=== PATIENT | female | born 1985 | race Caucasian/White ===

== ENCOUNTER 2017-03-27 11:00 | Emergency (ER) | payer MEDICAID, OTHER ==
[~2017-03-27] VITALS: Wt 76.4 kg
[~2017-03-27 11:00] MED LIST: ACET500T84 PO; OMEP20CA16 PO; RANI150C11 PO
--- NOTE | 2017-03-27 13:23 | ERD ---
ER Documentation Chief Complaint Chief Complaint RASH, ITCHING, ONSET 1 WEEK, NO SOB HPI 32-year-old female, with a history of contact dermatitis, presents to the emergency department complaining of a worsening of pruritic rash, generalized, that started 1 week ago. The patient thinks that the symptoms are exacerbated because of the changes in the weather. The symptoms are associated with runny nose, itchy eyes and dry throat . Currently, she is not taking any medications for allergies, the patient denies fevers, chills, shortness of breath. ROS SYSTEMIC symptoms: no fever, chills, no night sweats, no weight loss EYE symptoms: No blurred vision, no eye discharge OTOLARYNGEAL symptoms: No hearing loss. No ear pain, no sore throat CARDIOVASCULAR symptoms: No chest pain or discomfort, no palpitations. PULMONARY symptoms: No dyspnea, no cough, no wheezing. GASTROINTESTINAL symptoms: No abdominal pain, no nausea, no vomiting, no diarrhea MUSCULOSKELETAL symptoms: No arthralgias, no muscle aches. NEUROLOGY symptoms: No confusion, no syncope, no numbness or tingling. SKIN: Per HPI Medications Home Meds Active Scripts Prednisone (Prednisone) 20 Mg Tab, 20 MG PO DAILY for 5 Days, TAB Prov:ZOE WEBB MD 03/27/17 Hydroxyzine Hcl* (Hydroxyzine Hcl*) 25 Mg Tablet, 25 MG PO Q8H Y for ITCHING, # 30 TAB Prov:ZOE WEBB MD 03/27/17 Cromolyn Sodium* (Cromolyn Sodium*) 4% - 10 Ml Drops, 1 DROP BOTH EYES QID for 15 Days, EA Prov:ZOE WEBB MD 03/27/17 Triamcinolone Acetonide (Triamcinolone Acetonide) 0.1% - 60 Ml Lotion, 1 APPLIC TOP BID, #1 BOTTLE Prov:ZOE WEBB MD 03/27/17 Reported Medications Acetaminophen (Q-Pap Extra Strength) 500 Mg Tablet, 500 MG PO Q4 08/01/12 Omeprazole* (Omeprazole*) 20 Mg Capsule.dr, 20 MG PO BID 08/01/12 Ranitidine Hcl (Ranitidine Hcl) 150 Mg Capsule, 150 MG PO BID 08/01/12 Allergies Allergies: Coded Allergies: No Known Allergy (Verified , NO, 03/27/17) PMhx/Soc History of Surgery: No Anesthesia Reaction: No Hx Neurological Disorder: No Hx Respiratory Disorders: No Hx Cardiac Disorders: No Hx Psychiatric Problems: No Hx Miscellaneous Medical Probl: No Hx Alcohol Use: No Hx Substance Use: No Hx Tobacco Use: No Smoking Status: Never smoker Physical Exam Vitals Vital Signs Date Time Temp Pulse Resp B/P Pulse Ox O2 Delivery O2 Flow Rate FiO2 03/27/17 11:05 98.4 72 18 112/59 98 Physical Exam Patient is in no acute distress, vital signs stable. Alert and fully oriented. EYES: PERRLA, EOMI, Sclera and conjunctiva injected otherwise appear normal. EARS: Canals clear, tympanic membranes WNL THROAT: Erythematous oropharynx. NECK: Supple, No lymphadenopathy. Full ROM without pain or tenderness. HEART: RRR, no rubs, murmurs, clicks or gallops. LUNGS: Clear to auscultation. ABDOMEN: Soft, non-tender without masses or hepatosplenomegaly. EXTREMITIES: No edema bilaterally. BACK: Full ROM, no deformity, normal back exam NEURO: Cranial nerves grossly intact, no motor or sensory deficit Skin: Multiple dry, erythematous plaques located on flexor areas and back Procedures/MDM 32-year-old female, with history of contact dermatitis, presents to the emergency department for worsening of generalized pruritic rash for 1 week, associated with itchy eyes and runny nose. Vital signs stable, Physical exam revealed multiple dry, erythematous plaques predominantly in upper extremities and dorsum. Differential diagnosis include but not limited to: Infectious process like impetigo, cellulitis, abscess; autoimmune process like psoriasis, contact dermatitis, lupus; insect bites. Physical examination and clinical presentation consistent most likely with eczema. During the ED course the patient remained stable, no new complaints. Results and clinical impression discussed with patient who agrees with management. The patient is stable to be treated outpatient and will be discharged home with a Rx for triamcinolone, hydroxyzine and cromolyn, some side effects of prescribed medications (headache, rash, nausea, vomiting, diarrhea, drowsiness, habituation, bleeding, hypertension, interactions with other medications) were reviewed. The patient was instructed to follow up with the primary care provider in the next 48h. If symptoms persist, worsen or new symptoms develop, then patient should return to the ED immediately. Instructions explained and given directly by me to the patient in Bengali with acknowledgment and demonstrated understanding. Disclaimer: Inadvertent spelling and grammatical errors are likely due to EHR/ dictation software use and do not reflect on the overall quality of patient care. Also, please note that the electronic time recorded on this note does not necessarily reflect the actual time of the patient encounter. Departure Diagnosis: Primary Impression: Eczema Additional Impression: Allergic conjunctivitis and rhinitis Condition: Stable Additional Instructions: Call your primary care doctor TOMORROW for an appointment during the next 1-2 days. See the doctor sooner or return here if your condition worsens before your appointment time. Thank you very much for allowing us to participate in your care. Your health and safety is our top priority at [facility]. Have prescriptions filled and follow precisely the directions on the label. Follow-up with primary care provider during the next 4 days and bring all the information and medications prescribed. If illness has not improved in 2 days, then make an appointment with primary care provider. If the provider is unavailable, return to the Emergency Department immediately. ZOE WEBB MD Mar 27, 2017 13:22
[2017-03-27] MEDS ORDERED: PRED20TA PO (13:25)
[2017-03-27] MEDS ORDERED: CROM10DR6 BOTH EYES (13:25)
[2017-03-27] MEDS ORDERED: HYDR-3011 PO (13:25)
[2017-03-27] MEDS ORDERED: TR1B60 TOP (13:25)
== END 2017-03-27 13:34 | disposition home or self-care (01) ==
LOC: FTE 11:00
DX: L30.9 Dermatitis, unspecified (principal); H10.13 Acute atopic conjunctivitis, bilateral; J30.9 Allergic rhinitis, unspecified
CPT/HCPCS: 99284

== ENCOUNTER 2017-03-28 13:59 | Emergency (ER) | payer MEDICAID ==
[~2017-03-28] VITALS: Wt 76.1 kg
[~2017-03-28 13:59] MED LIST changes: +CROM10DR6 BOTH EYES; +HYDR-3011 PO; +PRED20TA PO; +TR1B60 TOP
--- NOTE | 2017-03-28 16:16 | ERD ---
ER Documentation Chief Complaint Chief Complaint PAIN/REDNESS ON RIGHT EYE, STATES FOREIGN OBJECT WENT INTO EYE HPI Returns to the emergency department complaining of right eye irritation due to a foreign body. Denies eye pain, no blurred vision, no use of contact lenses, she was able to remove the foreign body but still has some irritation. In regards to the urticaria symptoms, she refers feeling much better ROS SYSTEMIC symptoms: no fever, chills, no night sweats, no weight loss EYE symptoms: No blurred vision, no eye discharge OTOLARYNGEAL symptoms: No hearing loss. No ear pain, no sore throat CARDIOVASCULAR symptoms: No chest pain or discomfort, no palpitations. PULMONARY symptoms: No dyspnea, no cough, no wheezing. GASTROINTESTINAL symptoms: No abdominal pain, no nausea, no vomiting, no diarrhea MUSCULOSKELETAL symptoms: No arthralgias, no muscle aches. NEUROLOGY symptoms: No confusion, no syncope, no numbness or tingling. SKIN: No rashes Medications Home Meds Active Scripts Prednisone (Prednisone) 20 Mg Tab, 20 MG PO DAILY for 5 Days, TAB Prov:ZOE WEBB MD 03/27/17 Hydroxyzine Hcl* (Hydroxyzine Hcl*) 25 Mg Tablet, 25 MG PO Q8H Y for ITCHING, # 30 TAB Prov:ZOE WEBB MD 03/27/17 Cromolyn Sodium* (Cromolyn Sodium*) 4% - 10 Ml Drops, 1 DROP BOTH EYES QID for 15 Days, EA Prov:ZOE WEBB MD 03/27/17 Triamcinolone Acetonide (Triamcinolone Acetonide) 0.1% - 60 Ml Lotion, 1 APPLIC TOP BID, #1 BOTTLE Prov:ZOE WEBB MD 03/27/17 Reported Medications Acetaminophen (Q-Pap Extra Strength) 500 Mg Tablet, 500 MG PO Q4 08/01/12 Omeprazole* (Omeprazole*) 20 Mg Capsule.dr, 20 MG PO BID 08/01/12 Ranitidine Hcl (Ranitidine Hcl) 150 Mg Capsule, 150 MG PO BID 08/01/12 Allergies Allergies: Coded Allergies: No Known Allergy (Verified , NO, 03/28/17) PMhx/Soc Medical and Surgical Hx: pt denies Medical Hx, pt denies Surgical Hx History of Surgery: No Anesthesia Reaction: No Hx Neurological Disorder: No Hx Respiratory Disorders: No Hx Cardiac Disorders: No Hx Psychiatric Problems: No Hx Miscellaneous Medical Probl: No Hx Alcohol Use: No Hx Substance Use: No Hx Tobacco Use: No Physical Exam Vitals Vital Signs Date Time Temp Pulse Resp B/P Pulse Ox O2 Delivery O2 Flow Rate FiO2 03/28/17 14:03 97.1 82 17 131/55 99 Physical Exam Patient is in no acute distress, vital signs stable. Alert and fully oriented. EYES: PERRLA, EOMI, Sclera and conjunctiva appear normal. EARS: Canals clear, tympanic membranes WNL THROAT: Normal oropharynx. NECK: Supple, No lymphadenopathy. Full ROM without pain or tenderness. HEART: RRR, no rubs, murmurs, clicks or gallops. LUNGS: Clear to auscultation. ABDOMEN: Soft, non-tender without masses or hepatosplenomegaly. EXTREMITIES: No edema bilaterally. BACK: Full ROM, no deformity, normal back exam NEURO: Cranial nerves grossly intact, no motor or sensory deficit Results 24 hrs Current Medications Medications (Trade) Dose Ordered Sig/Oliva Route PRN Reason Start Time Stop Time Status Last Admin Dose Admin Erythromycin (Erythromycin Oph Oint) 1 applic ONCE ONCE LEFT EYE 03/28/17 16:30 03/28/17 16:31 DC Procedures/MDM 32-year-old female, presents to the emergency department for evaluation and management of right eye discomfort after a foreign body. Vital signs stable, Physical exam revealed right eye with noninfected corneal abrasion. Differential diagnosis include but not limited to: Foreign body, corneal ulcer, dendritic ulcer. No suspicion for process or autoimmune process like iritis or glaucoma.. Physical examination and clinical presentation consistent most likely with corneal abrasion. During the ED course the patient remained stable, no new complaints. The patient received treatment with erythromycin ointment presenting overall improvement of the symptoms. Results and clinical impression discussed with patient who agrees with management. The patient is stable to be treated outpatient and will be discharged home with a Rx for erythromycin ointment, some side effects of prescribed medications (headache, rash, nausea, vomiting, diarrhea, drowsiness, habituation, bleeding, hypertension, interactions with other medications) were reviewed. The patient was instructed to follow up with the primary care provider in the next 48h. If symptoms persist, worsen or new symptoms develop, then patient should return to the ED immediately. Instructions explained and given directly by me to the patient in Maori with acknowledgment and demonstrated understanding. Disclaimer: Inadvertent spelling and grammatical errors are likely due to EHR/ dictation software use and do not reflect on the overall quality of patient care. Also, please note that the electronic time recorded on this note does not necessarily reflect the actual time of the patient encounter. Departure Diagnosis: Primary Impression: Cornea abrasion Condition: Stable Additional Instructions: Muchas tequila por [facility] para roland servicio. Esperamos que en roland visita a la jameel de emergencia roland problema medico haya sido solucionado y que se sienta mucho mejor. Para estar seguros que roland mejoria sigue en proceso, le pedimos el favor de hacer jerry jason de seguimiento medico con roland doctor primario en los proximos 2-4 fischer. Lleve con usted estos documentos y las medicinas recetadas. Si gigi sintomas empeoran y no puede isha a roland doctor, por favor regrese a jameel de emergencia. En jennifer que usted no tenga un mdico de atencin primaria: Llame al mdico o clnica comunitaria de referencia que aparece abajo tim las horas de consultorio para hacer jerry jason para que le vean. CLINICAS: [facility] [phone] [facility] [phone] [facility] [phone] [facility] [phone] [facility] [phone] [facility] [phone] MD Mar 28, 2017 16:16
[2017-03-28] MEDS ORDERED: ERYTHROMYCIN 1 GM OPH OINT LEFT EYE ONE (16:30)
[2017-03-28 17:37] VITALS: BP 134/67; PULSE 83; RESP 19
== END 2017-03-28 17:34 | disposition home or self-care (01) ==
LOC: FTE 13:59
DX: S05.01XA Injury of conjunctiva and corneal abrasion without foreign body, right eye, initial encounter (principal); X58.XXXA Exposure to other specified factors, initial encounter; Y92.9 Unspecified place or not applicable
CPT/HCPCS: Z7502; Z7610; 99283